=== PATIENT | male | born 1970 | race Two or more races ===

== ENCOUNTER → 2016-09-11 | Outpatient (CLI) | payer OTHER ==
--- NOTE | ~2016-09-11 | CR181 ---
[facility]. [facility] A Service of [facility] & [facility] RADIOLOGY TEXT RESULTS PATIENT: NICKO JONES LOCATION: [facility] : 68 UNIT #: [id number] AGE: [address]: Daja Kimball MD SEX: M ORDER DR: [id number] [facility] [address] [facility]. [place], [place] [address] [id number] O MR#: [id number] Acc #: [id number] NAME: NICKO JONES : 1970 SEX: M STUDY DATE/TIME: 09/11/2016 11:24 UNIT: [facility] ROOM: STUDY DESCRIPTION: CR Lumbar Spine 2 or 3 Views Attending Physician: Daja Kimball M.D. Referring Physician: Daja Kimball M.D. Ordering Physician: Daja Kimball M.D. Primary Care Physician: Daja Kimball M.D. MEDICAL IMAGING REPORT This report is preliminary unless electronic signature is present EXAM Lumbar spine 3 views 09/11/2016 HISTORY Low back pain with left lower extremity radiculopathy for 2 weeks. Lifting injury, injured back 2 weeks ago lifting heavy boxes. FINDINGS 3 views of the lumbar spine demonstrate no fracture. The posterior vertebral body line is intact and there is no anterolisthesis or retrolisthesis. There is degenerative change with mild disc space narrowing at L4-5 and there is moderate narrowing at L5-S1. Small anterior osteophytes are seen at L5. IMPRESSION Degenerative change in the lumbar spine. No acute abnormality. Dictated by... Rick Suarez M.D. THIS IS AN ELECTRONICALLY VERIFIED REPORT Rick Suarez M.D. at 09/14/2016 12:19 PM KIMBERLY/rnr TD: 09/12/2016 05:04 JOB #: [id number] MEDICAL IMAGING REPORT Page 1 of 1 COPY
== END | disposition home or self-care (01) ==
LOC: CRAD 10:57
DX: M54.9 Dorsalgia, unspecified (principal); M47.816 Spondylosis without myelopathy or radiculopathy, lumbar region
CPT/HCPCS: 72100